=== PATIENT | female | born 1950 ===

== ENCOUNTER 2018-12-28 05:50 | Day surgery (SDC) | payer OTHER ==
[~2018-12-28 05:50] MED LIST: AZILECT1 MG PO; CATAFLAM50 MG PO; IBERSARTAN PO; LOSARTAN-HCTZ1 EAC2 PO; NABUMETONE500 MG PO; NORVASC PO; Neurontin PO; ORPH100T PO; OXYC1TAB9 PO; PERCOCET 5/3251 TAB PO; PRILOSEC20 MG PO; SIMVASTATIN20 MG PO; SYN PO; SYNTHROID88 MCG PO; XARELTO10 MG PO; ZANTAC300 MG PO; [UNRECOGNIZED DRUG - OTHER] PO
[2018-12-28] MEDS ORDERED: AVIDOXY100 MG PO (10:28)
[2018-12-28] MEDS ORDERED: TYLENOL-CODEINE1 TA1 PO (10:28)
== END 2018-12-28 13:45 | disposition home or self-care (01) ==
LOC: CIR.AMB 05:50
DX: D25.0 Submucous leiomyoma of uterus (principal); N84.0 Polyp of corpus uteri